=== PATIENT | male | born 1985 | race Caucasian/White ===

== ENCOUNTER 2016-12-03 15:30 | Emergency (ER) | payer OTHER ==
--- NOTE | 2016-12-03 16:17 | UCPHY ---
H & P Patient Type: New Time Seen by Provider: 12/03/16 15:50 HPI/ROS: CHIEF COMPLAINT: Shoulder pain HISTORY OF PRESENT ILLNESS: Patient is a 31-year-old healthy man who comes to the Urgent Care complaining of left shoulder pain. He fell snowboarding yesterday. He impacted his left shoulder on the snow. He has pain with elevation of his arm. No difficulty breathing, no head or neck injury. classifies his pain as moderate. REVIEW OF SYSTEMS: Constitutional: denies: chills, fever, recent illness, recent injury EENTM: denies: blurred vision, double vision, nose congestion Respiratory: denies: cough, shortness of breath Cardiac: denies: chest pain, irregular heart rate, lightheadedness, palpitations Gastrointestinal/Abdominal: denies: abdominal pain, diarrhea, nausea, vomiting, blood streaked stools Genitourinary: denies: dysuria, frequency, hematuria, pain Musculoskeletal: See HPI Skin: denies: lesions, rash, jaundice, bruising Neurological: denies: headache, numbness, paresthesia, tingling, dizziness, weakness Hematologic/Lymphatic: denies: blood clots, easy bleeding, easy bruising Immunologic/allergic: denies: HIV/AIDS, transplant EXAM: GENERAL: Well-appearing, well-nourished and in no acute distress. HEAD: Atraumatic, normocephalic. EYES: Pupils equal round and reactive to light, extraocular movements intact, sclera anicteric, conjunctiva are normal. ENT: TMs normal, nares patent, oropharynx clear without exudates. Moist mucous membranes. NECK: Normal range of motion, supple without lymphadenopathy or JVD. LUNGS: Breath sounds clear to auscultation bilaterally and equal. No wheezes rales or rhonchi. HEART: Regular rate and rhythm without murmurs, rubs or gallops. ABDOMEN: Soft, nontender, normoactive bowel sounds. No guarding, no rebound. No masses appreciated. BACK: No CVA tenderness, no spinal tenderness, step-offs or deformities EXTREMITIES: Patient's left shoulder pain with elevation. Step-off at the distal end of clavicle. Pain with elevation anterior or laterally. No crepitus. No neck pain. NEUROLOGICAL: Cranial nerves II through XII grossly intact. Normal speech, normal gait. 5/5 strength, normal movement in all extremities, normal sensation PSYCH: Normal mood, normal affect. SKIN: Warm, dry, normal turgor, no visible rashes or lesions. Source: Patient Exam Limitations: No limitations - Medical/Surgical History Hx Asthma: No Hx Chronic Respiratory Disease: No Hx Diabetes: No Hx Cardiac Disease: No Hx Renal Disease: No Hx Cirrhosis: No Hx Alcoholism: No - Family History Significant Family History: No pertinent family hx - Social History Alcohol Use: Sober Drug Use: None Allergies/Adverse Reactions: No Known Allergies Allergy (Unverified 12/03/16 15:36) Medical Decision Making - Diagnostics Imaging: X-ray: Left shoulder x-ray was obtained. I viewed the images myself on the PACS system. My interpretation of the images is: Positive for third-degree AC separation. The radiologist interpretation is pending. ED Course/Re-evaluation: We discussed the patient's x-ray results, sling placement and plan for follow up with Orthopedics. He is happy with this plan and declines any further workup or testing at this time. The patient declines prescription medication. Differential Diagnosis: Partial list of the Differential diagnosis considered include but were not limited to; AC separation, clavicle fracture, and although unlikely based on the history and physical exam, I also considered neck injury, head injury. I discussed these differential diagnoses and the plan with the patient as well as the usual and expected course. The patient understands that the diagnosis is provisional and that in medicine we are not always correct and that further workup is often warranted. Usual and customary warnings were given. All of the patient's questions were answered. The patient was instructed to return to the emergency department should the symptoms at all worsen or return, otherwise to followup with the physician as we discussed. Departure - Departure Disposition: Home, Routine, Self-Care Clinical Impression: AC separation, type 3 Qualifiers: Encounter type: initial encounter Laterality: left Qualified Code(s): S43.102A - Unspecified dislocation of left acromioclavicular joint, initial encounter Condition: Fair Instructions: Acromioclavicular Separation (ED) Referrals: NONE *PRIMARY CARE P,. [Primary Care Provider] - As per Instructions Reid Guerra MD [Medical Doctor] - As per Instructions - PQRS PQRS Measurement: Not applicable
== END 2016-12-03 17:00 | disposition home or self-care (01) ==
LOC: CED 15:30
DX: S43.102A Unspecified dislocation of left acromioclavicular joint, initial encounter (principal); Y93.23 Activity, snow (alpine) (downhill) skiing, snowboarding, sledding, tobogganing and snow tubing; Y92.828 Other wilderness area as the place of occurrence of the external cause; V00.311A Fall from snowboard, initial encounter
CPT/HCPCS: 73030-PO; 99204-PO; G0463-PO